=== PATIENT | female | born 1995 | race Caucasian/White ===

== ENCOUNTER 2025-06-25 08:11 | Emergency (ER) | payer BC, SELFPAY ==
--- NOTE | 2025-06-25 08:17 | ED_ITS ---
HPI - General Adult General Chief complaint: Upper Respiratory Infection Stated complaint: Sore Throat/Cough/Trouble Breathing Time Seen by Provider: 06/25/25 08:15 Source: patient Mode of arrival: ambulatory Limitations: no limitations History of Present Illness HPI narrative: Patient is a 30-year-old female presenting with complaint of upper respiratory symptoms. Patient reports sore throat began 5 days ago. Additional symptoms beginning over the last few days including cough, postnasal drip, voice hoarseness. Patient reports difficulty breathing when coughing. No known exposure to COVID, flu, strep, pneumonia. Does not work, stays home. No constitutional symptoms. Treatment initiated prior to arrival include ibuprofen. No additional complaints. Related Data Home Medications ?Medication ?Instructions ?Recorded ?Confirmed ?Last Taken ?Type No Home Medications 06/25/25 06/25/25 U nknown History Allergies Allergy/AdvReac Type Severity Reaction Status Date / Time No Known Allergies Allergy Verified 06/25/25 08:28 Review of Systems Review of Systems: CONSTITUTIONAL: Denies body aches, fever, chills, or sweats. EYES: Denies visual changes, redness, or discharge. ENT: reports sore throat, voice hoarseness, Denies rhinorrhea, congestion or otalgia. CARDIOVASCULAR: Denies chest pain, palpitations, or edema. RESPIRATORY: Reports cough denies hemoptysis, dyspnea. GASTROINTESTINAL: Denies abdominal pain, nausea, vomiting, or diarrhea. GENITOURINARY: Denies dysuria or hematuria. SKIN: Denies rash, itching, or wounds. MUSCULOSKELETAL: Denies back pain, joint pain, or myalgia. NEUROLOGIC: Denies headache, numbness, tingling, or weakness. PSYCH: Denies depression or anxiety. Exam Narrative: GENERAL: Well-appearing, well-nourished, and in no acute distress. HEAD: Normocephalic, atraumatic. EYES: EOMI. No redness or drainage. Conjunctivae normal. ENT: Mucous membranes pink and moist. Nares clear. No rhinorrhea. TMs normal bilaterally. Uvula midline. tonsils are 1+ bilaterally. There is no Oropharyngeal erythema, edema, exudate, lesions. NECK: Normal AROM. Supple. No lymphadenopathy. CHEST: No respiratory distress. Clear to auscultation. HEART: Regular rate and rhythm. No murmur appreciated. Normal peripheral pulses. ABDOMEN: Soft, nontender, nondistended, normal active bowel sounds. SKIN: Warm, dry, no rash. Capillary refill normal. Normal skin turgor. NEURO: No focal deficits. Alert and oriented x3. Gait steady. PSYCH: anxious, tearful affect. No signs of depression or anxiety. Course Course Level of Care: Express Care Visit Vital Signs Vital signs: Vital Signs Oxygen Delivery Room Air 06/25/25 08:25 Temperature 97.9 F 06/25/25 08:38 Pulse Rate 120 H 06/25/25 08:38 Respiratory Rate 16 06/25/25 08:38 Blood Pressure 122/97 H 06/25/25 08:38 Pulse Oximetry 100 06/25/25 08:38 Oxygen Delivery Room Air 06/25/25 08:25 Medical Decision Making MDM Narrative Medical decision making narrative: Discussed elevated blood pressure readings with patient and advised daily BP monitoring and f/u with PCP if persisting. Discussed POC results, offered to order CXR for further peace of mind--declined. Viral etiology discussed, symptomatic treatment/timeline discussed at lengthStrict go to ER precautions discussed at length. Vital Signs Vital Signs: Vital Signs Oxygen Delivery Room Air 06/25/25 08:25 Temperature 97.9 F 06/25/25 08:38 Pulse Rate 120 H 06/25/25 08:38 Respiratory Rate 16 06/25/25 08:38 Blood Pressure 122/97 H 06/25/25 08:38 Pulse Oximetry 100 06/25/25 08:38 Oxygen Delivery Room Air 06/25/25 08:25 Lab Data Labs: Lab Results 06/25/25 06/25/25 Range/Units 08:38 08:44 POC Influenza A Ag Negative (Negative) POC Influenza B Ag Negative (Negative) POC SARS CoV-2 Ag Negative (Negative) POC Grp A Strep Screen Negative (Negative) Discharge Plan Discharge Clinical Impression: Upper respiratory infection Qualifiers: URI type: unspecified URI Qualified Code(s): J06.9 - Acute upper respiratory infection, unspecified Pharyngitis Qualifiers: Pharyngitis/tonsillitis etiology: unspecified etiology Qualified Code(s): J02.9 - Acute pharyngitis, unspecified Patient Disposition: Home Condition: Stable Instructions: Antibiotic Form, Cold Symptoms (ED) Additional Instructions: Go straight to ER should your symptoms become worse or should any new symptoms develop Patient Language: Icelandic Prescriptions: No Action No Home Medications Follow-up/Referrals: PHYSICIAN,ARCADE ATTENDANT [Primary Care Provider, Internal Medicine] - 06/26/25 Time of Disposition: 08:47
[2025-06-25 08:38] VITALS: BP 122/97; PULSE 120; RESP 16; TEMP 36.6; O2SAT 100
[2025-06-25 08:40] LABS: EDINFLUASCREEN Negative (Negative); EDINFLUBSCREEN Negative (Negative); EDSTREPNEGPOS1 Negative (Negative)
[2025-06-25 08:45] LABS: EDCOVIDSCREEN Negative (Negative)
== END 2025-06-25 08:52 | disposition home or self-care (01) ==
PROVIDERS: Emergency Provider Registered Nurse
DX: J06.9 Acute upper respiratory infection, unspecified (principal); Z20.822 Contact with and (suspected) exposure to COVID-19
CPT/HCPCS: 87081; 87426; 87804; 87880; 99203; G0463